=== PATIENT | male | born 1955 | race African-American/Black ===

== ENCOUNTER 2017-10-27 11:01 | Outpatient (CLI) | payer OTHER ==
--- NOTE | 2017-10-27 12:43 | PRG ---
DATE OF SERVICE: 10/27/2017 HISTORY: Mr. Ronald Serrano is a very pleasant 62-year-old gentleman who presents to the Wound Center for evaluation of an ulceration of the left lower leg. The patient has a pneumatic pump at home which he states he has been using for the treatment of right lower extremity lymphedema. The patient states that once the ulceration of his left lower leg developed, he has not utilized his pneumatic pump on the left. The patient states he is receiving assistance with dressing changes for the left lower leg ulceration by Home Health. The patient reports the sudden onset of left lower extremity edema. He admits to being sedentary. PHYSICAL EXAMINATION: VITAL SIGNS: Temperature 98.3, pulse 94, respirations 18, blood pressure 157/ 87. Accu-Chek 129. EXTREMITIES: An ulceration of the left lower leg is present which measures approximately 2.8 x 2.7 cm. Granulation tissue is present within the wound margins. Necrotic and nonviable tissue present within the wound margins was debrided with an excisional full-thickness debridement with the use of a curet. No purulent drainage is associated with the wound. No erythema of the skin surrounding the wound is present. No maceration of the skin of the periwound is noted. A dorsalis pedis pulse is palpable on the left. Significant edema of the left lower leg is present on exam today. ASSESSMENT AND PLAN: 1. Chronic venous hypertension with ulceration. A venous ultrasound of the left lower extremity will be obtained today to look for findings suggestive of a deep venous thrombosis. If findings suggestive of a deep venous thrombosis are not present, the ulceration will be dressed with Silverlon, Webril, and the 3M Coban 2-layer compression system. As stated above, the patient is receiving assistance with dressing changes by Home Health. The patient has been told that he may utilize his pneumatic pump on the left when the ulceration is not dressed with the 3M Coban 2-layer compression system. The patient understands and is in agreement with the preceding treatment plan. 2. Diabetes mellitus. The patient's Accu-Chek in clinic today is 129. The patient has been told that for optimal wound healing, his blood glucoses should remain below 150. 3. Hypertension. 4. Gout. 5. Lymphedema tarda. 6. Degenerative joint disease. 7. Chronic obstructive pulmonary disease. 8. Obstructive sleep apnea. 9. Anemia. 10. Congestive heart failure. MTDD
--- NOTE | 2017-10-27 15:27 | ULT ---
ULTRASOUND WITH DOPPLER DUPLEX VENOUS LOWER EXTREMITY LEFT: HISTORY: A 62-year-old male with left lower extremity edema. TECHNIQUE: Color flow Doppler, spectral waveform analysis of pulsed Doppler, and sidhu-scale imaging with spike dell and augmentation, were used to evaluate the left common femoral, femoral, popliteal, posterior t ibial, and superficial femoral, veins; and the proximal portions of the profunda femoral and greater saphenous, veins. FINDINGS: There is normal compressibility, demonstration of blood flow by color Doppler and pulsed Doppler, and response to augmentation, in all interrogated veins. IMPRESSION: Negative. No deep vein thrombosis in the left lower extremity. jn[] POS: ISSA
[2017-10-27] MEDS ORDERED: Sodium Chloride 0.9% 15 ML NEB ONE (17:18)
[2017-10-27] MEDS ORDERED: Lidocaine 2% Jelly 5 ML TUBE ONE (17:18)
== END 2017-10-27 11:02 | disposition home or self-care (01) ==
LOC: WCC 11:01 → ULT 11:02
PROVIDERS: ATTEND Family Medicine
DX: M79.89 Other specified soft tissue disorders (principal)
CPT/HCPCS: 11042; 36416; 99213; A4218; G0463

== ENCOUNTER 2018-10-14 10:13 | Outpatient (CLI) | payer OTHER ==
--- NOTE | 2018-10-14 11:35 | PRG ---
DATE OF SERVICE: 10/14/2018 HISTORY: Mr. Ronald Serrano is a very pleasant 63-year-old gentleman last seen in the Wound Center approximately 1 year ago, who now presents for evaluation of an ulceration of the left lateral lower leg. The patient states that he was recently discharged from [facility] after admission for treatment of his left lateral lower leg ulceration. The patient states that he received treatment with IV antibiotics. The patient states that after he was last seen in the Wound Center approximately 1 year ago, the wound of his left lateral lower leg healed completely. He states that when he developed swelling of his lower extremities from heart failure, the ulceration of the left lateral lower leg recurred. Prior to the patient's discharge from clinic one year ago, the patient had received a pneumatic pump for treatment of lower extremity lymphedema. PHYSICAL EXAMINATION: VITAL SIGNS: Temperature 97.5, pulse 97, respirations 20, blood pressure 150/90. Accu-Chek 76. EXTREMITIES: An ulceration of the left lateral lower leg is present, which measures approximately 5.5 x 6.0 cm. Granulation tissue is present within the wound margins. Necrotic and nonviable tissue present within the wound margins was debrided with an excisional full-thickness debridement with the use of a curette. No purulent drainage is associated with the wound. No erythema of the skin surrounding the wound is present. No maceration of the skin of the periwound is noted. A dorsalis pedis pulse is palpable on the right and on the left. Significant edema of the right and left feet and lower legs is present on exam today. ASSESSMENT AND PLAN: 1. Chronic venous hypertension with ulceration. Silverlon, Webril and the 3M Coban 2 Layer Compression System will be applied to the left lower leg ulceration today. Webril and the 3 M Coban 2 Layer Compression System will be applied to the right foot and lower leg. Orders will be transmitted to Home Health for the preceding dressing changes on a weekly basis. I will see Mr. Serrano again in one week. The patient understands and is in agreement with the preceding treatment plan. 2. Diabetes mellitus. The patient's Accu-Chek in clinic today is 76. The patient has been reminded that for optimal wound healing his blood glucoses should remain below 150. 3. Hypertension. 4. Gout. 5. Lymphedema tarda. 6. Degenerative joint disease. 7. Chronic obstructive pulmonary disease. 8. Obstructive sleep apnea. 9. Anemia. 10. Congestive heart failure. Job ID: [id number]
== END 2018-10-14 10:14 | disposition home or self-care (01) ==
LOC: WCC 10:13
PROVIDERS: ATTEND Family Medicine
DX: I87.312 Chronic venous hypertension (idiopathic) with ulcer of left lower extremity (principal); E11.622 Type 2 diabetes mellitus with other skin ulcer; L97.929 Non-pressure chronic ulcer of unspecified part of left lower leg with unspecified severity; I10 Essential (primary) hypertension; M10.9 Gout, unspecified; I89.0 Lymphedema, not elsewhere classified; M19.90 Unspecified osteoarthritis, unspecified site; J44.9 Chronic obstructive pulmonary disease, unspecified; G47.33 Obstructive sleep apnea (adult) (pediatric); D64.9 Anemia, unspecified; I50.9 Heart failure, unspecified
CPT/HCPCS: 36416

== ENCOUNTER 2018-11-11 10:24 | Outpatient (CLI) | payer OTHER ==
[~2018-11-11 10:24] MED LIST: Lidocaine 2% PF 100 mg/5 ml Syringe ONE; Sodium Chloride 0.9% 15 ML NEB ONE
--- NOTE | 2018-11-11 12:13 | PRG ---
DATE OF SERVICE: 11/11/2018 HISTORY: Mr. Ronald Serrano is a very pleasant 63-year-old gentleman, who presents to the Wound Center for evaluation of an ulceration of the left lateral lower leg. At the time of the patient's last visit, Mr. Serrano stated that he was recently discharged from [facility] after admission for treatment of his left lateral lower leg ulceration. The patient stated that he received treatment with IV antibiotics. He stated that after he was seen in the Wound Center approximately 1 year ago, the wound of his left lateral lower leg healed completely. He stated that when he developed swelling of his lower extremities from heart failure, the ulceration of the left lateral lower leg recurred. The patient states that he has a pneumatic pump at home for treatment of lower extremity lymphedema. PHYSICAL EXAMINATION: VITAL SIGNS: Temperature 98.4, pulse 112, respirations 16, blood pressure 142/89. Accu-Chek 77. EXTREMITIES: An ulceration of the left lateral lower leg is present which measures approximately 6.3 x 4.5 cm. Nonviable tissue present within the wound margins was debrided with an excisional full-thickness debridement with the use of a curette. No purulent drainage is associated with the wound. No erythema of the skin surrounding the wound is present. No maceration of the skin of the periwound is noted. A dorsalis pedis pulse is palpable on the left. Significant edema of the left foot and lower leg is present on exam today. ASSESSMENT AND PLAN: 1. Chronic venous hypertension with ulceration, Webril and 3M Coban 2 Layer Compression System will be applied to the left foot and lower leg today. Orders will be transmitted to Home Health for Webril and 3M Coban 2 Layer Compression System to the left foot and lower leg on a weekly basis. I will see Mr. Serrano again in 4 weeks. The patient has been instructed to utilize his lymphedema pump on the right in conjunction with the use of a compression garment. 2. Diabetes mellitus. The patient's Accu-Chek in clinic today is 77. The patient has been reminded that for optimal wound healing, his blood glucoses should remain below 150. 3. Hypertension. 4. Gout. 5. Lymphedema tarda. 6. Degenerative joint disease. 7. Chronic obstructive pulmonary disease. 8. Obstructive sleep apnea. 9. Anemia. 10. Congestive heart failure. Job ID: [id number]
== END 2018-11-11 10:25 | disposition home or self-care (01) ==
LOC: WCC 10:24
PROVIDERS: ATTEND Family Medicine
DX: I87.312 Chronic venous hypertension (idiopathic) with ulcer of left lower extremity (principal); L97.929 Non-pressure chronic ulcer of unspecified part of left lower leg with unspecified severity; I11.0 Hypertensive heart disease with heart failure; I50.9 Heart failure, unspecified; M10.9 Gout, unspecified; I89.0 Lymphedema, not elsewhere classified; M19.90 Unspecified osteoarthritis, unspecified site; J44.9 Chronic obstructive pulmonary disease, unspecified; G47.33 Obstructive sleep apnea (adult) (pediatric); D64.9 Anemia, unspecified
CPT/HCPCS: 11042; 11045; 36416; A4218; J2001

== ENCOUNTER 2018-12-23 14:00 | Outpatient (CLI) | payer OTHER ==
[~2018-12-23 14:00] MED LIST changes: -Lidocaine 2% PF 100 mg/5 ml Syringe ONE
--- NOTE | 2018-12-23 16:43 | PRG ---
DATE OF SERVICE: 12/23/2018 HISTORY: Mr. Ronald Serrano is a very pleasant 63-year-old gentleman, who presents to the Wound Center for evaluation of an ulceration of the left lower leg. The patient previously stated that he was recently discharged from [facility] after admission for treatment of his left lower leg ulceration. The patient stated that he received treatment with IV antibiotics. He stated that after he was seen in the Wound Center approximately 1 year ago, the wound of his left lower leg healed completely. He stated that when he developed swelling of his lower extremities from heart failure, the ulceration of the left lower leg recurred. The patient stated that he has a pneumatic pump at home for treatment of lower extremity lymphedema. The patient has been receiving dressing changes of the 3M Coban 2 Layer Compression System on a weekly basis with the assistance of Home Health. PHYSICAL EXAMINATION: VITAL SIGNS: Temperature 98.4, pulse 113, blood pressure 133/91. Accu-Chek 124. EXTREMITIES: An ulceration of the left lower leg is present, which measures approximately 4.3 x 2.8 cm. The dimensions of the wound at the time of the patient's last visit were approximately 6.3 x 4.5 cm. Nonviable tissue present within the wound margins was debrided with an excisional full-thickness debridement. No purulent drainage is associated with the wound. No erythema of the skin surrounding the wound is present. No maceration of the skin of the periwound is noted. A dorsalis pedis pulse is palpable on the left. Lymphedema of the left foot and lower leg is present on exam today. ASSESSMENT AND PLAN: 1. Chronic venous hypertension with ulceration. The 3M Coban 2 Layer Compression System will be applied to the left foot and lower leg today. Orders will be transmitted to Home Health for application of the 3M Coban 2 Layer Compression System to the left foot and lower leg on a weekly basis. I will see Mr. Serrano again in 8 weeks. 2. Diabetes mellitus. The patient's Accu-Chek in clinic today is 124. The patient has been reminded that for optimal wound healing, his blood glucoses should remain below 150. 3. Hypertension. 4. Gout. 5. Lymphedema tarda. The patient has been encouraged to utilize his CPAP mask. I have explained that with appropriate treatment of obstructive sleep apnea, he may have less lymphedema. 6. Degenerative joint disease. 7. Chronic obstructive pulmonary disease. 8. Obstructive sleep apnea. 9. Anemia. 10. Congestive heart failure. The patient states he has a followup appointment with Dr. Concepcion later this month. Job ID: [id number]
== END 2018-12-23 14:01 | disposition home or self-care (01) ==
LOC: WCC 14:00
PROVIDERS: ATTEND Family Medicine
DX: I87.312 Chronic venous hypertension (idiopathic) with ulcer of left lower extremity (principal); L97.929 Non-pressure chronic ulcer of unspecified part of left lower leg with unspecified severity; I11.0 Hypertensive heart disease with heart failure; I50.9 Heart failure, unspecified; M10.9 Gout, unspecified; I89.0 Lymphedema, not elsewhere classified; M19.90 Unspecified osteoarthritis, unspecified site; J44.9 Chronic obstructive pulmonary disease, unspecified; G47.33 Obstructive sleep apnea (adult) (pediatric); D64.9 Anemia, unspecified
CPT/HCPCS: 11042; A4218

== ENCOUNTER 2019-01-21 15:27 | Outpatient (CLI) | payer OTHER ==
--- NOTE | 2019-01-21 17:15 | PRG ---
DATE OF SERVICE: 01/21/2019 HISTORY: Mr. Ronald Serrano is a very pleasant 63-year-old gentleman, who presents to the Wound Center for evaluation of an ulceration of the left lower leg. Today, the patient states that he was recently discharged from [facility] after admission for treatment of his left lower leg ulceration. The patient states that a blister developed over the existing left lower leg ulceration. The patient continues to receive dressing changes with the assistance of Home Health. PHYSICAL EXAMINATION: VITAL SIGNS: Temperature 97.7, pulse 84, respirations 19, and blood pressure 123/78. Accu-Chek 154. EXTREMITIES: An ulceration of the left lower leg is present, which measures approximately 6.5 x 3.0 cm. Granulation tissue is present within the wound margins. No purulent drainage is associated with the wound. No erythema of the skin surrounding the wound is present. No maceration of the skin of the periwound is noted. A dorsalis pedis pulse is palpable on the left. Lymphedema of the left foot and lower leg is present on exam today. ASSESSMENT AND PLAN: 1. Chronic venous hypertension with ulceration. PolyMem Silver followed by the 3M Coban 2 Layer Compression System will be applied to the left lateral lower leg ulceration today. Orders will be transmitted to Home Health for the preceding dressing changes 2 times per week after cleansing and irrigation. I will see Mr. Serrano again in 8 weeks. 2. Diabetes mellitus. The patient's Accu-Chek in clinic today is 154. The patient has been reminded that for optimal wound healing, his blood glucoses should remain below 150. 3. Hypertension. 4. Gout. 5. Lymphedema tarda. The patient has been reminded that with appropriate treatment of obstructive sleep apnea, he may have less lymphedema. 6. Degenerative joint disease. 7. Chronic obstructive pulmonary disease. 8. Obstructive sleep apnea. 9. Anemia. 10. Congestive heart failure. The patient states that he has not yet had a followup appointment with Dr. Concepcion as was discussed at the time of the patient's last visit. Job ID: [id number]
[2019-01-21] MEDS ORDERED: Sodium Chloride 0.9% 15 ML NEB ONE (17:26)
== END 2019-01-21 15:28 | disposition home or self-care (01) ==
LOC: WCC 15:27
PROVIDERS: ATTEND Family Medicine
DX: I87.312 Chronic venous hypertension (idiopathic) with ulcer of left lower extremity (principal); E11.622 Type 2 diabetes mellitus with other skin ulcer; L97.929 Non-pressure chronic ulcer of unspecified part of left lower leg with unspecified severity; I11.0 Hypertensive heart disease with heart failure; I50.9 Heart failure, unspecified; M10.9 Gout, unspecified; G47.33 Obstructive sleep apnea (adult) (pediatric); I89.0 Lymphedema, not elsewhere classified; J44.9 Chronic obstructive pulmonary disease, unspecified; D64.9 Anemia, unspecified
CPT/HCPCS: 36416; 97602; A4218

== ENCOUNTER 2019-02-24 15:29 | Outpatient (CLI) | payer OTHER ==
--- NOTE | 2019-02-24 17:20 | PRG ---
DATE OF SERVICE: 02/24/2019 HISTORY: Mr. Ronald Serrano is a very pleasant 64-year-old gentleman, who presents to the Wound Center for evaluation of bilateral lower extremity edema. Again today, the patient states that he was recently discharged from the hospital. He states that during his hospital stay, he was treated with compression wraps for the edema of both lower extremities. The patient states that he would like to receive treatment with compression wraps with the assistance of Home Health. PHYSICAL EXAMINATION: VITAL SIGNS: Temperature 98.2, pulse 99, respirations 18, blood pressure 130/80. Accu-Chek 119. EXTREMITIES: No wounds of the right or left lower leg are present. No cellulitis of the right or left lower leg is present. No maceration of the skin of the right or left lower leg is present. A dorsalis pedis pulse is palpable on the right and on the left. Edema of the right and left feet and lower legs is present on exam today. ASSESSMENT AND PLAN: 1. Chronic venous hypertension. Webril and the 3M Coban 2 Layer Compression System will be applied to the right and left feet and lower legs today. Orders will be transmitted to Home Health for dressing changes on a weekly basis after cleansing and irrigation. 2. Lymphedema. Arrangements will be made for lymphedema therapy through home health. The patient has already been provided with a pneumatic pump. 3. Diabetes mellitus. The patient's Accu-Chek in clinic today is 119. 4. Hypertension. 5. Gout. 6. Obstructive sleep apnea. 7. Degenerative joint disease. 8. Chronic obstructive pulmonary disease. 9. Anemia. 10. Congestive heart failure. Job ID: [id number]
== END 2019-02-24 15:30 | disposition home or self-care (01) ==
LOC: WCC 15:29
PROVIDERS: ATTEND Family Medicine
DX: I87.309 Chronic venous hypertension (idiopathic) without complications of unspecified lower extremity (principal); I11.0 Hypertensive heart disease with heart failure; I89.0 Lymphedema, not elsewhere classified; E11.9 Type 2 diabetes mellitus without complications; G47.33 Obstructive sleep apnea (adult) (pediatric); M10.9 Gout, unspecified; M19.90 Unspecified osteoarthritis, unspecified site; J44.9 Chronic obstructive pulmonary disease, unspecified; D64.9 Anemia, unspecified; I50.9 Heart failure, unspecified
CPT/HCPCS: 36416

== ENCOUNTER 2019-03-17 15:02 | Outpatient (CLI) | payer OTHER ==
--- NOTE | 2019-03-17 15:57 | PRG ---
DATE OF SERVICE: 03/17/2019 HISTORY: Mr. Ronald Serrano is a very pleasant 64-year-old gentleman, who presents to the Wound Center for evaluation of bilateral lower extremity edema. The patient states that he also has wounds of the right lower leg which developed since his last visit to the Wound Center. The patient has been evaluated by Occupational Therapy for lymphedema therapy. He states that he is still awaiting approval in order to begin treatment, however. PHYSICAL EXAMINATION: VITAL SIGNS: Temperature 97.9, pulse 91, respirations 22, blood pressure 128/85. Accu-Chek 93. EXTREMITIES: Two wounds are present over the right lower leg. No wounds are present over the left lower leg. No purulent drainage is associated with the wounds over the right lower leg. No cellulitis of the right or left lower leg is present. No maceration of the skin of the right or left lower leg is present. A dorsalis pedis pulse is palpable on the right and on the left. Edema of the right and left feet and lower legs is present on today's exam. ASSESSMENT AND PLAN: 1. Chronic venous hypertension with ulceration. Xeroform gauze, Webril, and the 3M Coban 2 Layer Compression System will be applied to the right lower leg ulcerations today. Webril and the 3M Coban 2 Layer Compression System will be applied to the left foot and lower leg. 2. Lymphedema. As stated above, the patient is awaiting approval in order to begin lymphedema therapy by OT. 3. Diabetes mellitus. The patient's Accu-Chek in clinic today is 93. The patient has been told that for optimal wound healing, his blood glucoses should remain below 150. 4. Hypertension. 5. Gout. 6. Obstructive sleep apnea. 7. Degenerative joint disease. 8. Chronic obstructive pulmonary disease. 9. Anemia. 10. Congestive heart failure. Job ID: [id number]
== END 2019-03-17 15:03 | disposition home or self-care (01) ==
LOC: WCC 15:02
PROVIDERS: ATTEND Family Medicine
DX: I87.311 Chronic venous hypertension (idiopathic) with ulcer of right lower extremity (principal); E11.622 Type 2 diabetes mellitus with other skin ulcer; L97.919 Non-pressure chronic ulcer of unspecified part of right lower leg with unspecified severity; I89.0 Lymphedema, not elsewhere classified; I11.0 Hypertensive heart disease with heart failure; I50.9 Heart failure, unspecified; M10.9 Gout, unspecified; G47.33 Obstructive sleep apnea (adult) (pediatric); M19.90 Unspecified osteoarthritis, unspecified site; J44.9 Chronic obstructive pulmonary disease, unspecified; D64.9 Anemia, unspecified
CPT/HCPCS: 36416; 97602; A4218

== ENCOUNTER 2019-03-25 11:17 | Outpatient (CLI) | payer OTHER ==
--- NOTE | 2019-03-25 12:27 | PRG ---
DATE OF SERVICE: 03/25/2019 HISTORY: Mr. Ronald Serrano is a very pleasant 64-year-old gentleman, who presents to the Wound Center for evaluation of bilateral lower extremity edema. The patient also has wounds of the right lower leg in conjunction with bilateral lower extremity edema. Again, the patient states that he has been evaluated by occupational therapy for lymphedema therapy, but is still awaiting approval in order to begin treatment consisting of serial visits. PHYSICAL EXAMINATION: vital SIGNS: Temperature 98.0, pulse 102, respirations 24, and blood pressure 132/73. Accu-Chek 150. EXTREMITIES: Multiple wounds are present over the right lower leg. No wounds are present over the left lower leg. The wounds over the right lower leg have improved in their appearance since the patient's last visit. No purulent drainage is associated with the right lower leg wounds. No cellulitis of the right or left lower leg is present. No maceration of the skin of the right or left lower leg is present. Edema of the left foot and lower leg is present on exam today. No significant edema of the right foot or lower leg is appreciated on today's exam. ASSESSMENT AND PLAN: 1. Chronic venous hypertension with ulcerations. Xeroform gauze, Webril, and the 3M Coban 2-Layer Compression System will be applied to the right lower leg ulcerations today. Webril and the 3M Coban 2-Layer Compression System will be applied to the left foot and lower leg. 2. Lymphedema. As stated above, the patient is awaiting approval in order to begin lymphedema therapy by Occupational Therapy. Arrangements will be made for the home delivery of wraparound compression in the meantime. 3. Diabetes mellitus. The patient's Accu-Chek in clinic today is 150. The patient has been reminded that for optimal wound healing, his blood glucoses should remain below 150. 4. Hypertension. 5. Gout. 6. Obstructive sleep apnea. 7. Degenerative joint disease. 8. Chronic obstructive pulmonary disease. 9. Anemia. 10. Congestive heart failure. Job ID: [id number]
== END 2019-03-25 11:18 | disposition home or self-care (01) ==
LOC: WCC 11:17
PROVIDERS: ATTEND Family Medicine
DX: I87.311 Chronic venous hypertension (idiopathic) with ulcer of right lower extremity (principal); E11.622 Type 2 diabetes mellitus with other skin ulcer; I89.0 Lymphedema, not elsewhere classified; L97.919 Non-pressure chronic ulcer of unspecified part of right lower leg with unspecified severity; M10.9 Gout, unspecified; I11.0 Hypertensive heart disease with heart failure; I50.9 Heart failure, unspecified; D64.9 Anemia, unspecified; G47.33 Obstructive sleep apnea (adult) (pediatric); M19.90 Unspecified osteoarthritis, unspecified site; J44.9 Chronic obstructive pulmonary disease, unspecified
CPT/HCPCS: 29581; 36416

== ENCOUNTER 2019-03-31 13:47 | Outpatient (CLI) | payer OTHER ==
--- NOTE | 2019-03-31 17:06 | PRG ---
DATE OF SERVICE: 03/31/2019 SUBJECTIVE: Mr. Ronald Serrano is a very pleasant 64-year-old gentleman who presents to the Wound Center for evaluation of bilateral lower extremity edema. The patient also has wounds at the right and left lower legs in conjunction with bilateral lower extremity edema. Today, the patient states that he has been evaluated by Occupational Therapy for lymphedema therapy, but will only be able to begin lymphedema therapy once all of his ulcerations have healed completely. PHYSICAL EXAMINATION: VITAL SIGNS: Temperature 97.9, pulse 91, respirations 19, and blood pressure 150/90. Accu-Chek 114. EXTREMITIES: Multiple small ulcerations are present over the right and left lower legs. No purulent drainage is associated with any of the wounds. No cellulitis of the right or left lower leg is present. No maceration of the skin of the right or left lower leg is present. Edema of the right and left feet and lower legs is present on today's exam. ASSESSMENT AND PLAN: 1. Chronic venous hypertension with ulcerations. Xeroform gauze will be applied to the right and left lower leg ulcerations in conjunction with the Plurchase Coban 2 Layer Compression System. Webril and ABDs will be utilized as needed at the time of dressing changes. 2. Lymphedema. Arrangements were previously made for the home delivery of wrap around compression. I have asked the patient to bring his wraparound compression to his next clinic visit. The patient states that he recently received his wraparound compression in the mail. The patient will return to the wound center in 1 week for a dressing change. I will see Mr. Serrano again in 2 weeks. The patient will be instructed in regard to proper application of the wraparound compression at the time of his next clinic visit. 3. Diabetes mellitus. The patient's Accu-Chek in clinic today is 114. The patient has been reminded that for optimal wound healing his blood glucoses should remain below 150. 4. Hypertension. 5. Gout. 6. Obstructive sleep apnea. 7. Degenerative joint disease. 8. Chronic obstructive pulmonary disease. 9. Anemia. 10. Congestive heart failure. Job ID: [id number]
== END 2019-03-31 13:48 | disposition home or self-care (01) ==
LOC: WCC 13:47
PROVIDERS: ATTEND Family Medicine
DX: I87.313 Chronic venous hypertension (idiopathic) with ulcer of bilateral lower extremity (principal); E11.622 Type 2 diabetes mellitus with other skin ulcer; L97.929 Non-pressure chronic ulcer of unspecified part of left lower leg with unspecified severity; L97.919 Non-pressure chronic ulcer of unspecified part of right lower leg with unspecified severity; M10.9 Gout, unspecified; G47.33 Obstructive sleep apnea (adult) (pediatric); M19.90 Unspecified osteoarthritis, unspecified site; J44.9 Chronic obstructive pulmonary disease, unspecified; D64.9 Anemia, unspecified; I11.0 Hypertensive heart disease with heart failure; I50.9 Heart failure, unspecified
CPT/HCPCS: 29581; 36416

== ENCOUNTER 2019-04-07 11:31 | Outpatient (CLI) | payer OTHER | END 2019-04-07 11:32 | disposition home or self-care (01) | LOC: WCC 11:31 | PROVIDERS: ATTEND Family Medicine | DX: I87.311 Chronic venous hypertension (idiopathic) with ulcer of right lower extremity (principal); L97.919 Non-pressure chronic ulcer of unspecified part of right lower leg with unspecified severity | CPT/HCPCS: 36416 ==

== ENCOUNTER 2019-04-14 15:55 | Outpatient (CLI) | payer OTHER ==
--- NOTE | 2019-04-14 16:23 | PRG ---
DATE OF SERVICE: 04/14/2019 HISTORY: Mr. Ronald Serrano is a very pleasant 64-year-old gentleman, who presents to the Wound Center for evaluation of bilateral lower extremity edema. The patient also has wounds of the right and left lower legs in conjunction with bilateral lower extremity edema. The patient apparently has been evaluated by Occupational Therapy for lymphedema therapy. The patient previously stated that he would be able to begin lymphedema therapy only when all of his ulcerations have completely healed. PHYSICAL EXAMINATION: VITAL SIGNS: Temperature 97.7, pulse 80, respirations 19, blood pressure 181/96. Accu-Chek 92. EXTREMITIES: All ulcerations over the right and left lower legs have healed completely. Edema of the right and left feet and lower legs is again present on exam today. ASSESSMENT AND PLAN: 1. Chronic venous hypertension with ulcerations. As stated above, all ulcerations have completely healed. FarrowWraps will be applied to the right and left lower legs today. 2. Lymphedema. The patient is to use his pneumatic pump at night and utilize his FarrowWraps during the day. I will see Mr. Serrano again in 4 weeks. The patient will be referred again to Occupational Therapy for instruction in the application of short stretch dressings. 3. Diabetes mellitus. The patient's Accu-Chek in clinic today is 92. 4. Hypertension. 5. Gout. 6. Obstructive sleep apnea. 7. Degenerative joint disease. 8. Chronic obstructive pulmonary disease. 9. Anemia. 10. Congestive heart failure. Job ID: [id number]
== END 2019-04-14 15:56 | disposition home or self-care (01) ==
LOC: WCC 15:55
PROVIDERS: ATTEND Family Medicine
DX: I87.303 Chronic venous hypertension (idiopathic) without complications of bilateral lower extremity (principal); I89.0 Lymphedema, not elsewhere classified; E11.9 Type 2 diabetes mellitus without complications; M10.9 Gout, unspecified; G47.33 Obstructive sleep apnea (adult) (pediatric); M19.90 Unspecified osteoarthritis, unspecified site; J44.9 Chronic obstructive pulmonary disease, unspecified; D64.9 Anemia, unspecified; I11.0 Hypertensive heart disease with heart failure; I50.9 Heart failure, unspecified
CPT/HCPCS: 36416; 99213; G0463

== ENCOUNTER 2019-05-17 15:32 | Outpatient (CLI) | payer OTHER ==
--- NOTE | 2019-05-17 17:29 | PRG ---
DATE OF SERVICE: HISTORY: Mr. Ronald Serrano is a very pleasant 64-year-old gentleman, who [facility] of bilateral lower extremity edema. The patient has also been seen for wounds of the right and left lower legs in conjunction with bilateral lower extremity edema. The patient has been evaluated by occupational therapy for lymphedema therapy. The patient previously stated that he would be able to begin lymphedema therapy only when all of his ulcerations had completely healed. PHYSICAL EXAMINATION: VITAL SIGNS: Temperature 98.1, pulse 91, respirations 16, and blood pressure 143/80. Accu-Chek 114. EXTREMITIES: All ulcerations over the right and left lower legs have healed completely and remain healed. Less edema of the right and left feet and lower legs is present on exam today than at the time of the patient's last visit. ASSESSMENT AND PLAN: 1. Chronic venous hypertension with ulcerations. As stated above, all ulcerations have healed completely and remain healed. The patient is utilizing FarrowWraps as previously prescribed. 2. Lymphedema. The patient has been reminded to utilize his pneumatic pump at night and his FarrowWraps during the day. As stated above, the patient should now be able to begin lymphedema therapy now that all of his ulcerations have healed completely and remain healed. The patient was referred to Occupational Therapy for lymphedema therapy to include instruction in the application of short stretch dressings. 3. Diabetes mellitus. The patient's Accu-Chek in clinic today is 114. 4. Hypertension. 5. Gout. 6. Obstructive sleep apnea. 7. Degenerative joint disease. 8. Chronic obstructive pulmonary disease. 9. Anemia. 10. Congestive heart failure. Job ID: [id number]
== END 2019-05-17 15:33 | disposition home or self-care (01) ==
LOC: WCC 15:32
PROVIDERS: ATTEND Family Medicine
DX: I87.303 Chronic venous hypertension (idiopathic) without complications of bilateral lower extremity (principal); I11.0 Hypertensive heart disease with heart failure; I50.9 Heart failure, unspecified; I89.0 Lymphedema, not elsewhere classified; M10.9 Gout, unspecified; G47.33 Obstructive sleep apnea (adult) (pediatric); M19.90 Unspecified osteoarthritis, unspecified site; J44.9 Chronic obstructive pulmonary disease, unspecified; D64.9 Anemia, unspecified; E11.9 Type 2 diabetes mellitus without complications
CPT/HCPCS: 97602

== ENCOUNTER 2021-11-29 10:15 | Inpatient (IN) | payer OTHER ==
[~2021-11-29 10:15] MED LIST changes: +Heparin 1,000 UNITS/ML VIAL ONE; -Sodium Chloride 0.9% 15 ML NEB ONE
[2021-11-29] MEDS ORDERED: Furosemide 40 MG/4 ML VIAL ONE (10:25)
[2021-11-29 10:33] LABS: Actual Bicarbonate (HCO3a) 23.5 mEq/L (22-28); Analyzer IN Cardio ER; Calcium, Ionized (arterial) 1.16 mmol/L (1.12-1.30); Carboxyhemoglobin (COHb) 2.8 gm% (0.0-3.0); Hemoglobin (Hb) 11.8 g/dL (14.0-18.0); O2 Tension (PaO2), arterial 251.2 mmHg (> 80.0)
[2021-11-29 10:34] LABS: Puncture Site LRA; pH, Arterial 7.11 (7.35-7.45)
[2021-11-29 10:44] LABS: #Eosinphils 0.4 thou/uL (0.0-0.7); #Lymphocytes 4.5 thou/uL (1.20-3.40); #Monocytes 0.9 thou/uL (0.11-0.59); #Neutrophils 4.8 thou/uL (1.40-6.50); %Basophils 0.4 % (0.0-1.0); %Eosinophils 3.7 % (0.0-10.0); %Lymphocytes 42.2 % (21.0-51.0); %Monocytes 8.7 % (0.0-10.0); %Neutrophils 44.9 % (42.0-75.0); Hemoglobin 11.8 g/dL (14.0-18.0); Mean Corpuscular HGB CONC 32.6 g/dL (32.0-36.0); Mean Corpuscular Hemoglobin 31.2 pg (27.0-31.0); Mean Corpuscular Volume 95.6 fL (78.0-98.0); Mean Platelet Volume 10.3 fL (7.4-10.4); Platelet Count 272 thou/uL (130-400); RBC Distribution Width 15.3 % (11.5-14.5); Red Blood Cell (RBC) Count 3.78 mill/uL (4.70-6.10); White Blood Cell (WBC) Count 10.7 thou/uL (4.8-10.8)
[2021-11-29] MEDS ORDERED: cefTRIAXone\\ROCEPHIN 2 GM VIAL ONE (10:49)
[2021-11-29 10:59] LABS: ALT (SGPT) 13 U/L (8-55); AST (SGOT) 17 U/L (5-34); Albumin 3.4 g/dL (3.4-4.8); Alkaline Phosphatase 90 U/L (40-110); Anion Gap 15 mmol/L (10-20); BUN (Urea Nitrogen) 29 mg/dL (8.4-25.7); Bilirubin, Total 0.2 mg/dL (0.2-1.2); Calc. Creatinine Clearance 0 mL/min (70-130); Calcium 8.5 mg/dL (7.8-10.44); Carbon Dioxide 21 mmol/L (23-31); Chloride 108 mmol/L (98-107); Glucose 218 mg/dL (80-115); Potassium 4.2 mmol/L (3.5-5.1); Protein, Total 8.4 g/dL (5.8-8.1); Sodium 140 mmol/L (136-145)
[2021-11-29] MEDS ORDERED: Iopamidol-370 76% 500 ML 1 ML ONE (11:07)
[2021-11-29] MEDS ORDERED: Azithromycin 500 MG VIAL ONE (11:42)
[2021-11-29] MEDS ORDERED: Electrolyte Replacement Protocol 1 EACH IVPB ONE (12:52)
[2021-11-29 12:53] LABS: Analyzer IN Cardio ER; Base Excess (BEa) -2.8 mEq/L (-2.0 to +3.0); CO2 Tension 51.4 mmHg (35.0-45.0); Calcium, Ionized (arterial) 1.14 mmol/L (1.12-1.30); Carboxyhemoglobin (COHb) 2.1 gm% (0.0-3.0); Hemoglobin (Hb) 10.7 g/dL (14.0-18.0); O2 Tension (PaO2), arterial 75.7 mmHg (> 80.0); Potassium - ABG Lab 4.42 mmol/L (3.70-5.30); pH, Arterial 7.29 (7.35-7.45)
[2021-11-29 12:54] LABS: Puncture Site RRA
[2021-11-29] MEDS ORDERED: Magnesium 2 GM/50 ML BAG (IN WATER) ONE (13:00)
[2021-11-29] MEDS ORDERED: Electrolyte Replacement Protocol FS PRN (13:00)
[2021-11-29] MEDS ORDERED: methylPREDNISolone Sod Succ/PF 125 MG/2 ML VIAL ONE (13:01)
[2021-11-29] MEDS ORDERED: Nitroglycerin 2% Ointment 1 INCH/1 GM Packet ONE (13:01)
[2021-11-29 13:54] LABS: SARS-CoV-2 NAA Rapid Test Not Detected (NotDetected)
[2021-11-29] MEDS ORDERED: Ondansetron ODT 4 MG TAB SL PRN (14:45)
[2021-11-29] MEDS ORDERED: Ondansetron PF 4 MG/2 ML Vial IVP PRN (14:45)
[2021-11-29] MEDS ORDERED: Insulin Regular 300 UNITS/3 ML VIAL SC PRN (15:34)
[2021-11-29] MEDS ORDERED: Dextrose 5% in Water 1,000 ML IV PRN (15:45)
[2021-11-29] MEDS ORDERED: Dextrose 50% Abboject 50 ML SYRINGE IVP PRN (15:45)
[2021-11-29 16:09] VITALS: BMI 40.1
[2021-11-29] MEDS: methylPREDNISolone Sod Succ 40 MG VIAL IVP SCH (18:10)
[2021-11-29] MEDS: Carvedilol 6.25 MG TAB PO SCH (20:00)
[2021-11-29] MEDS: Enoxaparin Sodium 40 MG/0.4 ML SYRINGE SC SCH (20:00)
[2021-11-29] MEDS: Famotidine 20 MG TAB PO SCH (20:01)
[2021-11-29] MEDS: Lantus 1000 UNITS/10 ML VIAL SC SCH (21:57)
[2021-11-30] MEDS: methylPREDNISolone Sod Succ 40 MG VIAL IVP SCH ×4 (00:12→22:34)
[2021-11-30 04:35] LABS: Hemoglobin 9.5 g/dL (14.0-18.0); Mean Corpuscular HGB CONC 31.4 g/dL (32.0-36.0); Mean Corpuscular Hemoglobin 30.2 pg (27.0-31.0); Mean Corpuscular Volume 96.1 fL (78.0-98.0); Platelet Count 214 thou/uL (130-400); RBC Distribution Width 14.1 % (11.5-14.5); Red Blood Cell (RBC) Count 3.16 mill/uL (4.70-6.10)
[2021-11-30 04:47] LABS: Band 2 % (5-11); Lymphocytes 10 % (21-51); MDiff Complete? YES; Monocytes 3 % (0-10); Neutrophil 84 % (42-75); Reactive Lymphocytes 1 % (0-10)
[2021-11-30 04:56] LABS: ALT (SGPT) 11 U/L (8-55); AST (SGOT) 10 U/L (5-34); Albumin 2.9 g/dL (3.4-4.8); Alkaline Phosphatase 70 U/L (40-110); Anion Gap 11 mmol/L (10-20); BUN (Urea Nitrogen) 34 mg/dL (8.4-25.7); Bilirubin, Total 0.2 mg/dL (0.2-1.2); Calc. Creatinine Clearance 60 mL/min (70-130); Calcium 8.5 mg/dL (7.8-10.44); Carbon Dioxide 25 mmol/L (23-31); Chloride 107 mmol/L (98-107); Globulin 3.6 g/dL (2.4-3.5); Glucose 125 mg/dL (80-115); Potassium 5.2 mmol/L (3.5-5.1); Protein, Total 6.5 g/dL (5.8-8.1); Sodium 138 mmol/L (136-145)
[2021-11-30 08:05] LABS: Amphetamine Not Detected (NotDetected); Barbiturates Screen Not Detected (NotDetected); Benzodiazepine Screen Not Detected (NotDetected); Cocaine Metabolite Screen Not Detected (NotDetected); Methadone Not Detected (NotDetected); Methamphetamine Not Detected (NotDetected); Opiate Screen Not Detected (NotDetected); Oxycodone Screen Not Detected (NotDetected); Phencyclidine (PCP) Not Detected (NotDetected); THC/Cannabinoid Screen Not Detected (NotDetected); Tricyclic Screen Not Detected (NotDetected)
[2021-11-30] MEDS: Carvedilol 6.25 MG TAB PO SCH ×2 (08:49→17:54)
[2021-11-30] MEDS: NIFEdipine XL 60 MG TAB PO SCH (08:49)
[2021-11-30] MEDS: cefTRIAXone\\ROCEPHIN 2 GM in Sodium Chloride 0.9% 100 ML IVPB SCH (08:49)
[2021-11-30] MEDS ORDERED: Furosemide 40 MG/4 ML VIAL SLOW IVP SCH (09:00)
[2021-11-30] MEDS: Azithromycin 500 MG in Sodium Chloride 0.9% 250 ML 250 ML IVPB SCH (13:03)
[2021-11-30 15:44] LABS: Anion Gap 15 mmol/L (10-20); BUN (Urea Nitrogen) 41 mg/dL (8.4-25.7); Calc. Creatinine Clearance 57 mL/min (70-130); Carbon Dioxide 22 mmol/L (23-31); Chloride 104 mmol/L (98-107); Glucose 131 mg/dL (80-115); Potassium 4.9 mmol/L (3.5-5.1); Sodium 136 mmol/L (136-145)
[2021-11-30] MEDS: Famotidine 20 MG TAB PO SCH (22:33)
[2021-11-30] MEDS: Lantus 1000 UNITS/10 ML VIAL SC SCH (22:34)
[2021-11-30] MEDS: Enoxaparin Sodium 40 MG/0.4 ML SYRINGE SC SCH (22:34)
[2021-12-01 04:57] LABS: ALT (SGPT) 9 U/L (8-55); AST (SGOT) 9 U/L (5-34); Albumin 3.1 g/dL (3.4-4.8); Alkaline Phosphatase 60 U/L (40-110); Anion Gap 12 mmol/L (10-20); BUN (Urea Nitrogen) 50 mg/dL (8.4-25.7); Bilirubin, Total 0.2 mg/dL (0.2-1.2); Calc. Creatinine Clearance 51 mL/min (70-130); Calcium 8.2 mg/dL (7.8-10.44); Carbon Dioxide 25 mmol/L (23-31); Chloride 105 mmol/L (98-107); Globulin 3.5 g/dL (2.4-3.5); Glucose 123 mg/dL (80-115); Potassium 4.9 mmol/L (3.5-5.1); Protein, Total 6.6 g/dL (5.8-8.1); Sodium 137 mmol/L (136-145)
[2021-12-01 06:16] LABS: Band 4 % (5-11); Hemoglobin 8.5 g/dL (14.0-18.0); Lymphocytes 12 % (21-51); MDiff Complete? YES; Mean Corpuscular Hemoglobin 29.9 pg (27.0-31.0); Mean Corpuscular Volume 96.2 fL (78.0-98.0); Mean Platelet Volume 8.7 fL (7.4-10.4); Monocytes 4 % (0-10); Neutrophil 80 % (42-75); Platelet Count 173 thou/uL (130-400); Red Blood Cell (RBC) Count 2.86 mill/uL (4.70-6.10); White Blood Cell (WBC) Count 9.2 thou/uL (4.8-10.8)
[2021-12-01] MEDS: Carvedilol 6.25 MG TAB PO SCH ×2 (08:54→17:04)
[2021-12-01] MEDS: cefTRIAXone\\ROCEPHIN 2 GM in Sodium Chloride 0.9% 100 ML IVPB SCH (08:54)
[2021-12-01] MEDS: NIFEdipine XL 60 MG TAB PO SCH (08:54)
[2021-12-01] MEDS: methylPREDNISolone Sod Succ 40 MG VIAL IVP SCH (08:55)
[2021-12-01] MEDS: Azithromycin 500 MG in Sodium Chloride 0.9% 250 ML 250 ML IVPB SCH (11:23)
[2021-12-01] MEDS ORDERED: predniSONE 20 MG TAB PO SCH (12:30)
[2021-12-01] MEDS ORDERED: Sodium Chloride 0.9% 1,000 ML IV SCH (12:30)
[2021-12-01] MEDS: Famotidine 20 MG TAB PO SCH (21:55)
[2021-12-01] MEDS: Enoxaparin Sodium 40 MG/0.4 ML SYRINGE SC SCH (21:55)
[2021-12-01] MEDS: Lantus 1000 UNITS/10 ML VIAL SC SCH (21:56)
[2021-12-02 04:36] LABS: Hemoglobin 8.9 g/dL (14.0-18.0); Mean Corpuscular HGB CONC 30.5 g/dL (32.0-36.0); Mean Corpuscular Hemoglobin 29.8 pg (27.0-31.0); Mean Corpuscular Volume 97.6 fL (78.0-98.0); Mean Platelet Volume 8.6 fL (7.4-10.4); Platelet Count 169 thou/uL (130-400); RBC Distribution Width 13.9 % (11.5-14.5)
[2021-12-02 05:09] LABS: Band 1 % (5-11); Lymphocytes 19 % (21-51); MDiff Complete? YES; Monocytes 10 % (0-10); Neutrophil 70 % (42-75)
[2021-12-02 05:13] LABS: ALT (SGPT) 14 U/L (8-55); AST (SGOT) 13 U/L (5-34); Albumin 3.1 g/dL (3.4-4.8); Alkaline Phosphatase 55 U/L (40-110); Anion Gap 11 mmol/L (10-20); BUN (Urea Nitrogen) 59 mg/dL (8.4-25.7); Bilirubin, Total Less than 0.2 mg/dL (0.2-1.2); Calc. Creatinine Clearance 46 mL/min (70-130); Calcium 7.8 mg/dL (7.8-10.44); Carbon Dioxide 25 mmol/L (23-31); Chloride 105 mmol/L (98-107); Globulin 3.5 g/dL (2.4-3.5); Glucose 112 mg/dL (80-115); Potassium 5.1 mmol/L (3.5-5.1); Protein, Total 6.6 g/dL (5.8-8.1); Sodium 136 mmol/L (136-145)
[2021-12-02] MEDS ORDERED: Magnesium 2 GM/50 ML 2 GM in Premix Bag 1 BAG IVPB SCH (06:00)
[2021-12-02] MEDS: NIFEdipine XL 60 MG TAB PO SCH (08:06)
[2021-12-02] MEDS: Carvedilol 6.25 MG TAB PO SCH (08:07)
[2021-12-02] MEDS: predniSONE 20 MG TAB PO SCH (08:07)
[2021-12-02] MEDS: cefTRIAXone\\ROCEPHIN 2 GM in Sodium Chloride 0.9% 100 ML IVPB SCH (08:08)
[2021-12-02] MEDS: Azithromycin 500 MG in Sodium Chloride 0.9% 250 ML 250 ML IVPB SCH (11:46)
[2021-12-02] MEDS ORDERED: Sodium Chloride 0.9% 500 ML IV SCH (12:15)
[2021-12-02] MEDS: Carvedilol 3.125 MG TAB PO SCH (16:40)
[2021-12-02] MEDS: Famotidine 20 MG TAB PO SCH (20:00)
[2021-12-02] MEDS: Enoxaparin Sodium 40 MG/0.4 ML SYRINGE SC SCH (20:45)
[2021-12-02] MEDS: Lantus 1000 UNITS/10 ML VIAL SC SCH (21:11)
[2021-12-03 05:18] LABS: ALT (SGPT) 22 U/L (8-55); AST (SGOT) 18 U/L (5-34); Albumin 3.1 g/dL (3.4-4.8); Alkaline Phosphatase 59 U/L (40-110); Anion Gap 13 mmol/L (10-20); BUN (Urea Nitrogen) 61 mg/dL (8.4-25.7); Bilirubin, Total 0.2 mg/dL (0.2-1.2); Calc. Creatinine Clearance 52 mL/min (70-130); Calcium 7.9 mg/dL (7.8-10.44); Carbon Dioxide 23 mmol/L (23-31); Chloride 107 mmol/L (98-107); Globulin 3.5 g/dL (2.4-3.5); Glucose 75 mg/dL (80-115); Potassium 4.8 mmol/L (3.5-5.1); Protein, Total 6.6 g/dL (5.8-8.1); Sodium 138 mmol/L (136-145)
[2021-12-03 06:14] LABS: Eosinophils 1 % (0-10); Hemoglobin 9.8 g/dL (14.0-18.0); Lymphocytes 30 % (21-51); MDiff Complete? YES; Mean Corpuscular HGB CONC 31.2 g/dL (32.0-36.0); Mean Corpuscular Hemoglobin 30.1 pg (27.0-31.0); Mean Corpuscular Volume 96.5 fL (78.0-98.0); Monocytes 7 % (0-10); Neutrophil 62 % (42-75); Platelet Count 185 thou/uL (130-400); RBC Distribution Width 13.9 % (11.5-14.5); Red Blood Cell (RBC) Count 3.24 mill/uL (4.70-6.10); White Blood Cell (WBC) Count 14.2 thou/uL (4.8-10.8)
[2021-12-03] MEDS ORDERED: Sodium Chloride 0.45% 1,000 ML IV SCH (06:45)
[2021-12-03] MEDS: predniSONE 20 MG TAB PO SCH (08:52)
[2021-12-03] MEDS: Carvedilol 3.125 MG TAB PO SCH ×2 (08:53→16:43)
[2021-12-03] MEDS: cefTRIAXone\\ROCEPHIN 2 GM in Sodium Chloride 0.9% 100 ML IVPB SCH (08:53)
[2021-12-03] MEDS: Enoxaparin Sodium 40 MG/0.4 ML SYRINGE SC SCH (20:48)
[2021-12-03] MEDS: Famotidine 20 MG TAB PO SCH (20:50)
[2021-12-03] MEDS: Lantus 1000 UNITS/10 ML VIAL SC SCH (20:53)
[2021-12-03 23:37] LABS: SARS-CoV-2 PCR by NAA Not Detected (NotDetected)
[2021-12-04 05:15] LABS: Hemoglobin 10.5 g/dL (14.0-18.0); Mean Corpuscular HGB CONC 31.1 g/dL (32.0-36.0); Mean Corpuscular Hemoglobin 29.6 pg (27.0-31.0); Mean Corpuscular Volume 95.3 fL (78.0-98.0); Platelet Count 195 thou/uL (130-400); RBC Distribution Width 13.9 % (11.5-14.5); Red Blood Cell (RBC) Count 3.53 mill/uL (4.70-6.10)
[2021-12-04 05:16] LABS: ALT (SGPT) 22 U/L (8-55); AST (SGOT) 17 U/L (5-34); Albumin 3.2 g/dL (3.4-4.8); Alkaline Phosphatase 68 U/L (40-110); Anion Gap 12 mmol/L (10-20); BUN (Urea Nitrogen) 51 mg/dL (8.4-25.7); Band 1 % (5-11); Bilirubin, Total 0.3 mg/dL (0.2-1.2); Calc. Creatinine Clearance 64 mL/min (70-130); Calcium 8.5 mg/dL (7.8-10.44); Carbon Dioxide 25 mmol/L (23-31); Chloride 108 mmol/L (98-107); Globulin 3.9 g/dL (2.4-3.5); Glucose 74 mg/dL (80-115); Lymphocytes 30 % (21-51); MDiff Complete? YES; Monocytes 9 % (0-10); Neutrophil 60 % (42-75); Potassium 4.8 mmol/L (3.5-5.1); Protein, Total 7.1 g/dL (5.8-8.1); Sodium 140 mmol/L (136-145)
[2021-12-04] MEDS: predniSONE 20 MG TAB PO SCH (08:54)
[2021-12-04] MEDS: Carvedilol 3.125 MG TAB PO SCH (08:54)
[2021-12-04] MEDS: cefTRIAXone\\ROCEPHIN 2 GM in Sodium Chloride 0.9% 100 ML IVPB SCH (08:55)
[2021-12-04 13:00] LABS: SARS-CoV-2 IgG Spike Ab Interp Reactive (NonReactive); SARS-CoV-2 IgG Spike Conc/Indx 32894.2 AU/mL (0.00-50.0)
[2021-12-04] MEDS ORDERED: Carvedilol 3.125 MG TAB PO SCH (15:11)
[2021-12-04] MEDS: Carvedilol 6.25 MG TAB PO SCH (17:06)
[2021-12-04] MEDS: Famotidine 20 MG TAB PO SCH (20:17)
[2021-12-04] MEDS: Enoxaparin Sodium 40 MG/0.4 ML SYRINGE SC SCH (20:17)
[2021-12-04] MEDS: Lantus 1000 UNITS/10 ML VIAL SC SCH (20:19)
[2021-12-05 05:30] LABS: ALT (SGPT) 17 U/L (8-55); AST (SGOT) 11 U/L (5-34); Albumin 3.1 g/dL (3.4-4.8); Alkaline Phosphatase 69 U/L (40-110); Anion Gap 13 mmol/L (10-20); BUN (Urea Nitrogen) 44 mg/dL (8.4-25.7); Bilirubin, Total 0.2 mg/dL (0.2-1.2); Calc. Creatinine Clearance 68 mL/min (70-130); Calcium 8.4 mg/dL (7.8-10.44); Carbon Dioxide 21 mmol/L (23-31); Chloride 109 mmol/L (98-107); Globulin 3.7 g/dL (2.4-3.5); Glucose 107 mg/dL (80-115); Potassium 4.7 mmol/L (3.5-5.1); Protein, Total 6.8 g/dL (5.8-8.1); Sodium 138 mmol/L (136-145)
[2021-12-05 05:53] LABS: Band 3 % (5-11); Eosinophils 3 % (0-10); Hemoglobin 10.2 g/dL (14.0-18.0); Lymphocytes 31 % (21-51); MDiff Complete? YES; Mean Corpuscular HGB CONC 30.7 g/dL (32.0-36.0); Mean Corpuscular Hemoglobin 29.6 pg (27.0-31.0); Mean Corpuscular Volume 96.4 fL (78.0-98.0); Mean Platelet Volume 8.8 fL (7.4-10.4); Monocytes 9 % (0-10); Neutrophil 54 % (42-75); Platelet Count 180 thou/uL (130-400); Red Blood Cell (RBC) Count 3.45 mill/uL (4.70-6.10); White Blood Cell (WBC) Count 9.5 thou/uL (4.8-10.8)
[2021-12-05] MEDS: predniSONE 20 MG TAB PO SCH (08:52)
[2021-12-05] MEDS: cefTRIAXone\\ROCEPHIN 2 GM in Sodium Chloride 0.9% 100 ML IVPB SCH (08:52)
[2021-12-05] MEDS: Carvedilol 6.25 MG TAB PO SCH ×2 (08:53→17:05)
[2021-12-05] MEDS: Famotidine 20 MG TAB PO SCH (20:02)
[2021-12-05] MEDS: Lantus 1000 UNITS/10 ML VIAL SC SCH (20:02)
[2021-12-05] MEDS: Enoxaparin Sodium 40 MG/0.4 ML SYRINGE SC SCH (20:02)
[2021-12-06 08:24] VITALS: TEMP 98.7
[2021-12-06] MEDS ORDERED: NIFEdipine XL 60 MG TAB PO SCH (09:00)
[2021-12-06] MEDS: cefTRIAXone\\ROCEPHIN 2 GM in Sodium Chloride 0.9% 100 ML IVPB SCH (09:39)
[2021-12-06] MEDS: Carvedilol 6.25 MG TAB PO SCH (09:40)
[2021-12-06] MEDS: predniSONE 20 MG TAB PO SCH (09:41)
[2021-12-06 09:47] VITALS: BP 157/80
== END 2021-12-06 12:44 | disposition home or self-care (01) | DRG 193 ==
LOC: ERS 10:15 → CCU 12:57 → 2NO 11-30 17:38
PROVIDERS: ADMIT Internal Medicine; ATTEND Hospitalist
PROC: 5A09357 Assistance with Respiratory Ventilation, Less than 24 Consecutive Hours, Continuous Positive Airway Pressure (ICD-10-PCS; 2021-11-29)
PROC: 02HV33Z Insertion of Infusion Device into Superior Vena Cava, Percutaneous Approach (ICD-10-PCS; principal; 2021-12-05)
PROC: B548ZZA Ultrasonography of Superior Vena Cava, Guidance (ICD-10-PCS; 2021-12-05)
PROC: B5181ZA Fluoroscopy of Superior Vena Cava using Low Osmolar Contrast, Guidance (ICD-10-PCS; 2021-12-05)
DX: J18.9 Pneumonia, unspecified organism (principal); I50.33 Acute on chronic diastolic (congestive) heart failure; J96.22 Acute and chronic respiratory failure with hypercapnia; J96.21 Acute and chronic respiratory failure with hypoxia; J44.0 Chronic obstructive pulmonary disease with (acute) lower respiratory infection; J44.1 Chronic obstructive pulmonary disease with (acute) exacerbation; N17.9 Acute kidney failure, unspecified; I16.1 Hypertensive emergency; E87.2 Acidosis; I13.0 Hypertensive heart and chronic kidney disease with heart failure and stage 1 through stage 4 chronic kidney disease, or unspecified chronic kidney disease; N18.4 Chronic kidney disease, stage 4 (severe); R78.81 Bacteremia; E78.5 Hyperlipidemia, unspecified; M10.9 Gout, unspecified; F17.210 Nicotine dependence, cigarettes, uncomplicated; G47.33 Obstructive sleep apnea (adult) (pediatric); E66.01 Morbid (severe) obesity due to excess calories; I89.0 Lymphedema, not elsewhere classified; I27.20 Pulmonary hypertension, unspecified; D63.1 Anemia in chronic kidney disease; Z20.822 Contact with and (suspected) exposure to COVID-19; E87.5 Hyperkalemia; B99.8 Other infectious disease; E88.09 Other disorders of plasma-protein metabolism, not elsewhere classified; Z91.19 Patient's noncompliance with other medical treatment and regimen; Z79.51 Long term (current) use of inhaled steroids; Z79.82 Long term (current) use of aspirin; Z79.4 Long term (current) use of insulin; Z79.899 Other long term (current) drug therapy; Z68.39 Body mass index [BMI] 39.0-39.9, adult
CPT/HCPCS: 36415; 36416; 36569; 36600; 71045; 71275; 76770; 80053; 80306; 82805; 83605; 83735; 83880; 84145; 84484; 85007; 85025; 85027; 86140; 86769; 87040; 87077; 87149; 87186; 87633; 93005; 93306; 93970; 94640; 94660; 96365; 96367; 96374; 96375; C1751; J0456; J0696; J1644; J1650; J1815; J1940; J2920; J2930; J3475; J3490; J7030; J7050; J7512; J7620; Q9967; U0002; U0003; U0005

== ENCOUNTER 2022-04-02 13:07 | Outpatient (CLI) | payer OTHER | END 2022-04-02 13:08 | disposition home or self-care (01) | PROVIDERS: ATTEND Family Medicine | DX: G95.9 Disease of spinal cord, unspecified (principal); E66.01 Morbid (severe) obesity due to excess calories ==

== ENCOUNTER 2022-12-29 04:27 | Inpatient (IN) | payer OTHER, MEDICAID ==
[2022-12-29] MEDS ORDERED: Fentanyl CADD 100 ML IV SCH ×2 (04:45→07:00)
[2022-12-29 05:02] LABS: #Eosinphils 0.4 thou/uL (0.0-0.7); #Lymphocytes 4.6 thou/uL (1.20-3.40); #Monocytes 1.5 thou/uL (0.11-0.59); #Neutrophils 8.2 thou/uL (1.40-6.50); %Basophils 0.2 % (0.0-1.0); %Eosinophils 2.7 % (0.0-10.0); %Lymphocytes 31.1 % (21.0-51.0); Hemoglobin 9.5 g/dL (14.0-18.0); Mean Corpuscular HGB CONC 31.7 g/dL (32.0-36.0); Mean Corpuscular Hemoglobin 29.3 pg (27.0-31.0); Mean Corpuscular Volume 92.3 fl (78.0-98.0); Mean Platelet Volume 8.9 fL (7.4-10.4); Platelet Count 253 10x3/uL (130-400); RBC Distribution Width 15.5 % (11.5-14.5); Red Blood Cell (RBC) Count 3.24 mill/uL (4.70-6.10); White Blood Cell (WBC) Count 14.6 10x3/uL (4.8-10.8)
[2022-12-29 05:24] LABS: ALT (SGPT) 9 U/L (8-55); AST (SGOT) 13 U/L (5-34); Albumin 3.2 g/dL (3.4-4.8); Alkaline Phosphatase 83 U/L (40-110); Anion Gap 15 mmol/L (10-20); BUN (Urea Nitrogen) 41 mg/dL (8.4-25.7); Bilirubin, Total 0.3 mg/dL (0.2-1.2); Calc. Creatinine Clearance 0 mL/min (70-130); Calcium 7.3 mg/dL (7.8-10.44); Carbon Dioxide 19 mmol/L (23-31); Chloride 110 mmol/L (98-107); Estimated GFR 18; Glucose 145 mg/dL (80-115); Potassium 3.7 mmol/L (3.5-5.1); Protein, Total 7.2 g/dL (5.8-8.1); Sodium 140 mmol/L (136-145)
[2022-12-29 06:13] LABS: Amphetamine Not Detected (NotDetected); Barbiturates Screen Not Detected (NotDetected); Benzodiazepine Screen Not Detected (NotDetected); Cocaine Metabolite Screen Not Detected (NotDetected); Methadone Not Detected (NotDetected); Methamphetamine Not Detected (NotDetected); Opiate Screen Not Detected (NotDetected); Oxycodone Screen Not Detected (NotDetected); Phencyclidine (PCP) Not Detected (NotDetected); THC/Cannabinoid Screen Not Detected (NotDetected); Tricyclic Screen Not Detected (NotDetected)
[2022-12-29 06:14] LABS: Bacteria/HPF None Seen HPF (None Seen); Bilirubin Negative (Negative); Blood, Urine 2+ (Negative); Clarity Turbid (Clear); Glucose, Urine (Dipstick) 100 mg/dL (Negative); Ketone, Urine Negative (Negative); Leukocyte Negative Leu/uL (Negative); Nitrite Negative (Negative); Protein, Urine (Dipstick) 300 mg/dL (Neg-Trace); RBC/HPF 0-3 HPF (0-3); Squamous Epithelial 0-3 HPF (0-3); Urobilinogen Normal mg/dL (Less than 2)
[2022-12-29 06:33] LABS: SARS-CoV-2 NAA Rapid Test Not Detected (NotDetected)
[2022-12-29] MEDS ORDERED: Furosemide 20 MG/2 ML VIAL ONE (06:39)
[2022-12-29] MEDS ORDERED: Cefepime 2 GM VIAL ONE (06:39)
[2022-12-29] MEDS ORDERED: Ondansetron PF 4 MG/2 ML Vial IVP PRN (06:42)
[2022-12-29] MEDS ORDERED: Acetaminophen 325 MG TAB PO PRN (06:42)
[2022-12-29] MEDS ORDERED: Ventilator Sedation Protocol 1 EACH FS SCH (06:45)
[2022-12-29] MEDS ORDERED: DISCONTINUE PREVIOUS NARCOTIC PAIN MEDICATIONS AND BENZODIAZEPINES FS SCH (07:00)
[2022-12-29] MEDS ORDERED: Propofol BOLUS 1,000 MG/100 ML VIAL IV PRN (07:00)
[2022-12-29] MEDS ORDERED: Fentanyl BOLUS 250 ML IVPB PRN (07:00)
[2022-12-29] MEDS ORDERED: Lorazepam 2 MG/ML VIAL SLOW IVP PRN (07:00)
[2022-12-29] MEDS ORDERED: Propofol 1,000 MG/100 ML VIAL IV PRN (07:00)
[2022-12-29] MEDS ORDERED: Morphine 2 MG/ML VIAL SLOW IVP PRN (07:00)
[2022-12-29 07:39] LABS: Actual Bicarbonate (HCO3a) 21.8 mEq/L (22-28); Base Excess (BEa) -3.7 mEq/L (-2.0 to +3.0); CO2 Tension 41.7 mmHg (35.0-45.0); Calcium, Ionized (arterial) 1.01 mmol/L (1.12-1.30); Carboxyhemoglobin (COHb) 0.4 gm% (0.0-3.0); Hemoglobin (Hb) 8.9 g/dL (14.0-18.0); Potassium - ABG Lab 4.01 mmol/L (3.70-5.30); pH, Arterial 7.34 (7.35-7.45)
[2022-12-29 07:42] LABS: Puncture Site RRA
[2022-12-29 07:43] LABS: ALV-art Gradient 550.875 mmHg (0-20)
[2022-12-29 07:45] LABS: Magnesium 1.5 mg/dL (1.6-2.6)
[2022-12-29] MEDS ORDERED: Dextrose 5% in Water 1,000 ML IV PRN (07:56)
[2022-12-29] MEDS ORDERED: HumaLOG 300 UNITS/3 ML VIAL SC PRN (07:56)
[2022-12-29] MEDS ORDERED: Dextrose 50% Abboject 50 ML SYRINGE SLOW IVP PRN (07:56)
[2022-12-29 09:02] VITALS: BMI 37.8
[2022-12-29] MEDS ORDERED: Vancomycin Dose by Levels Sliding Scale (Wt > 99) FS SCH (10:00)
[2022-12-29] MEDS ORDERED: VANCOMYCIN 1.75 GM/500 ML BAG 1.75 GM in Premix Bag 1 BAG IVPB SCH (10:00)
[2022-12-29] MEDS: Famotidine 20 MG TAB PER TUBE SCH (10:17)
[2022-12-29] MEDS: Heparin 5,000 UNITS/ML VIAL SC SCH ×2 (10:17→21:36)
[2022-12-29] MEDS: Ipratropium/Albuterol 3 ML NEB NEB SCH ×4 (10:41→23:14)
[2022-12-29] MEDS ORDERED: Furosemide 20 MG/2 ML VIAL SLOW IVP SCH (14:00)
[2022-12-29] MEDS: metroNIDAZOLE 500 MG in Premix Bag 1 BAG IVPB SCH ×2 (14:30→21:37)
[2022-12-29] MEDS: Furosemide 40 MG/4 ML VIAL SLOW IVP SCH (14:30)
[2022-12-29] MEDS: Cefepime 1 GM in Sodium Chloride 0.9% 100 ML IVPB SCH (18:15)
[2022-12-30] MEDS: Ipratropium/Albuterol 3 ML NEB NEB SCH ×3 (03:02→10:48)
[2022-12-30 03:51] LABS: #Lymphocytes 1.7 thou/uL (1.20-3.40); #Monocytes 1.3 thou/uL (0.11-0.59); #Neutrophils 9.1 thou/uL (1.40-6.50); %Basophils 0.2 % (0.0-1.0); %Eosinophils 0.3 % (0.0-10.0); %Lymphocytes 13.7 % (21.0-51.0); %Monocytes 10.4 % (0.0-10.0); %Neutrophils 75.5 % (42.0-75.0); Hemoglobin 8.8 g/dL (14.0-18.0); Mean Corpuscular HGB CONC 32.7 g/dL (32.0-36.0); Mean Corpuscular Hemoglobin 29.8 pg (27.0-31.0); Mean Corpuscular Volume 91.3 fl (78.0-98.0); Mean Platelet Volume 9.3 fL (7.4-10.4); Platelet Count 206 10x3/uL (130-400); RBC Distribution Width 15.5 % (11.5-14.5); Red Blood Cell (RBC) Count 2.95 mill/uL (4.70-6.10); White Blood Cell (WBC) Count 12.1 10x3/uL (4.8-10.8)
[2022-12-30 04:15] LABS: ALT (SGPT) 9 U/L (8-55); AST (SGOT) 11 U/L (5-34); Albumin 2.6 g/dL (3.4-4.8); Alkaline Phosphatase 71 U/L (40-110); Anion Gap 14 mmol/L (10-20); BUN (Urea Nitrogen) 44 mg/dL (8.4-25.7); Bilirubin, Total 0.3 mg/dL (0.2-1.2); Calc. Creatinine Clearance 33 mL/min (70-130); Calcium 7.7 mg/dL (7.8-10.44); Carbon Dioxide 18 mmol/L (23-31); Chloride 114 mmol/L (98-107); Estimated GFR 16; Globulin 3.8 g/dL (2.4-3.5); Glucose 96 mg/dL (80-115); Magnesium 1.5 mg/dL (1.6-2.6); Potassium 4.3 mmol/L (3.5-5.1); Protein, Total 6.4 g/dL (5.8-8.1); Sodium 142 mmol/L (136-145)
[2022-12-30 04:37] LABS: Hemoglobin A1c 4.2 % (4.0-6.0)
[2022-12-30] MEDS: Cefepime 1 GM in Sodium Chloride 0.9% 100 ML IVPB SCH (06:22)
[2022-12-30] MEDS: metroNIDAZOLE 500 MG in Premix Bag 1 BAG IVPB SCH ×3 (06:40→21:04)
[2022-12-30] MEDS: Furosemide 40 MG/4 ML VIAL SLOW IVP SCH ×2 (07:12→14:31)
[2022-12-30] MEDS ORDERED: Magnesium 2 GM/50 ML(in water) 2 GM in Premix Bag 1 BAG IVPB SCH (08:45)
[2022-12-30 09:00] LABS: Vancomycin, Random 15.2 ug/mL (See Comment)
[2022-12-30] MEDS: Heparin 5,000 UNITS/ML VIAL SC SCH ×2 (09:04→19:36)
[2022-12-30] MEDS: Atorvastatin Calcium 20 MG TAB PO SCH (10:43)
[2022-12-30] MEDS: Famotidine 20 MG TAB PER TUBE SCH (10:43)
[2022-12-30] MEDS: Carvedilol 6.25 MG TAB PO SCH ×2 (10:44→19:34)
[2022-12-30] MEDS: Ipratropium 200 Puff Oral Inhaler INH SCH ×4 (10:50→22:14)
[2022-12-30] MEDS ORDERED: Ipratropium 200 Puff Oral Inhaler INH SCH (11:00)
[2022-12-30] MEDS ORDERED: Albuterol 200 PUFF (6.7GM INHALER) INH SCH (11:00)
[2022-12-30] MEDS ORDERED: NIFEdipine XL 60 MG TAB PO SCH (11:30)
[2022-12-30] MEDS ORDERED: Vancomycin HCl 750 MG in Sodium Chloride 0.9% 250 ML 250 ML IVPB SCH (11:30)
[2022-12-30] MEDS: Albuterol 200 PUFF (6.7GM INHALER) INH SCH ×3 (13:59→22:13)
[2022-12-30 14:17] LABS: Actual Bicarbonate (HCO3a) 19.3 mEq/L (22-28); Base Excess (BEa) -7.6 mEq/L (-2.0 to +3.0); CO2 Tension 45.4 mmHg (35.0-45.0); Calcium, Ionized (arterial) 1.11 mmol/L (1.12-1.30); Carboxyhemoglobin (COHb) 0.5 gm% (0.0-3.0); Hemoglobin (Hb) 9.4 g/dL (14.0-18.0); O2 Tension (PaO2), arterial 69.1 mmHg (> 80.0); Potassium - ABG Lab 3.95 mmol/L (3.70-5.30); pH, Arterial 7.25 (7.35-7.45)
[2022-12-30 14:58] LABS: Puncture Site RRA
[2022-12-30] MEDS ORDERED: Docusate 100 MG CAP PO PRN (15:58)
[2022-12-30] MEDS ORDERED: Polyethylene Glycol 3350 17 GM Packet PO PRN (15:58)
[2022-12-30] MEDS: HYDROcodone/Acetaminophen 10/325 mg Tablet PO PRN (16:58)
[2022-12-31] MEDS: Albuterol 200 PUFF (6.7GM INHALER) INH SCH ×3 (01:41→10:21)
[2022-12-31] MEDS: Ipratropium 200 Puff Oral Inhaler INH SCH ×3 (01:41→10:21)
[2022-12-31 05:18] LABS: #Eosinphils 0.2 thou/uL (0.0-0.7); #Monocytes 1.2 thou/uL (0.11-0.59); #Neutrophils 7.2 thou/uL (1.40-6.50); %Basophils 0.4 % (0.0-1.0); %Eosinophils 1.6 % (0.0-10.0); %Lymphocytes 18.8 % (21.0-51.0); %Monocytes 11.2 % (0.0-10.0); Hemoglobin 8.2 g/dL (14.0-18.0); Mean Corpuscular Hemoglobin 28.8 pg (27.0-31.0); Mean Corpuscular Volume 92.8 fl (78.0-98.0); Platelet Count 200 10x3/uL (130-400); RBC Distribution Width 15.6 % (11.5-14.5); Red Blood Cell (RBC) Count 2.84 mill/uL (4.70-6.10); White Blood Cell (WBC) Count 10.5 10x3/uL (4.8-10.8)
[2022-12-31 05:41] LABS: ALT (SGPT) 7 U/L (8-55); AST (SGOT) 10 U/L (5-34); Albumin 2.8 g/dL (3.4-4.8); Alkaline Phosphatase 66 U/L (40-110); Anion Gap 9 mmol/L (10-20); BUN (Urea Nitrogen) 50 mg/dL (8.4-25.7); Bilirubin, Total 0.2 mg/dL (0.2-1.2); Calc. Creatinine Clearance 31 mL/min (70-130); Calcium 7.4 mg/dL (7.8-10.44); Carbon Dioxide 21 mmol/L (23-31); Chloride 112 mmol/L (98-107); Estimated GFR 15; Globulin 3.5 g/dL (2.4-3.5); Glucose 95 mg/dL (80-115); Magnesium 1.8 mg/dL (1.6-2.6); Potassium 4.2 mmol/L (3.5-5.1); Protein, Total 6.3 g/dL (5.8-8.1); Sodium 138 mmol/L (136-145)
[2022-12-31] MEDS: metroNIDAZOLE 500 MG in Premix Bag 1 BAG IVPB SCH ×3 (05:46→21:32)
[2022-12-31] MEDS: Cefepime 1 GM in Sodium Chloride 0.9% 100 ML IVPB SCH (05:46)
[2022-12-31] MEDS: Furosemide 40 MG/4 ML VIAL SLOW IVP SCH ×2 (05:47→13:38)
[2022-12-31] MEDS: Carvedilol 6.25 MG TAB PO SCH ×2 (08:00→21:49)
[2022-12-31] MEDS: HYDROcodone/Acetaminophen 10/325 mg Tablet PO PRN ×2 (08:00→17:25)
[2022-12-31] MEDS: Atorvastatin Calcium 20 MG TAB PO SCH (08:01)
[2022-12-31] MEDS: Famotidine 20 MG TAB PER TUBE SCH (08:01)
[2022-12-31] MEDS: NIFEdipine XL 60 MG TAB PO SCH (08:02)
[2022-12-31] MEDS: Heparin 5,000 UNITS/ML VIAL SC SCH ×2 (08:02→21:31)
[2022-12-31] MEDS ORDERED: Ipratropium 200 Puff Oral Inhaler INH PRN (10:29)
[2022-12-31] MEDS ORDERED: Albuterol 200 PUFF (6.7GM INHALER) INH PRN (10:30)
[2022-12-31] MEDS ORDERED: predniSONE 20 MG TAB PO SCH (12:30)
[2023-01-01] MEDS: metroNIDAZOLE 500 MG in Premix Bag 1 BAG IVPB SCH ×3 (05:01→21:51)
[2023-01-01] MEDS: Cefepime 1 GM in Sodium Chloride 0.9% 100 ML IVPB SCH (05:01)
[2023-01-01 05:16] LABS: Hemoglobin 7.5 g/dL (14.0-18.0); Mean Corpuscular HGB CONC 31.7 g/dL (32.0-36.0); Mean Corpuscular Hemoglobin 29.3 pg (27.0-31.0); Mean Corpuscular Volume 92.4 fl (78.0-98.0); Mean Platelet Volume 9.6 fL (7.4-10.4); Platelet Count 194 10x3/uL (130-400); RBC Distribution Width 15.5 % (11.5-14.5); Red Blood Cell (RBC) Count 2.57 mill/uL (4.70-6.10); White Blood Cell (WBC) Count 11.1 10x3/uL (4.8-10.8)
[2023-01-01 05:37] LABS: Anion Gap 12 mmol/L (10-20); BUN (Urea Nitrogen) 54 mg/dL (8.4-25.7); Calc. Creatinine Clearance 30 mL/min (70-130); Calcium 7.6 mg/dL (7.8-10.44); Carbon Dioxide 19 mmol/L (23-31); Chloride 113 mmol/L (98-107); Estimated GFR 14; Glucose 108 mg/dL (80-115); Potassium 4.2 mmol/L (3.5-5.1); Sodium 140 mmol/L (136-145)
[2023-01-01] MEDS: Heparin 5,000 UNITS/ML VIAL SC SCH ×2 (08:10→21:46)
[2023-01-01] MEDS: HYDROcodone/Acetaminophen 10/325 mg Tablet PO PRN (08:10)
[2023-01-01] MEDS: Furosemide 80 MG TAB PO SCH (08:11)
[2023-01-01] MEDS: predniSONE 20 MG TAB PO SCH (08:11)
[2023-01-01] MEDS: NIFEdipine XL 60 MG TAB PO SCH (08:11)
[2023-01-01] MEDS: Atorvastatin Calcium 20 MG TAB PO SCH (08:11)
[2023-01-01] MEDS: Famotidine 20 MG TAB PER TUBE SCH (08:11)
[2023-01-01] MEDS: Carvedilol 6.25 MG TAB PO SCH ×2 (08:11→21:47)
[2023-01-01] MEDS ORDERED: Cefepime 1 GM in Sodium Chloride 0.9% 100 ML IVPB SCH (09:15)
[2023-01-02 04:57] LABS: Hemoglobin 7.9 g/dL (14.0-18.0); Mean Corpuscular HGB CONC 30.6 g/dL (32.0-36.0); Mean Corpuscular Hemoglobin 28.4 pg (27.0-31.0); Mean Platelet Volume 9.7 fL (7.4-10.4); Platelet Count 217 10x3/uL (130-400); RBC Distribution Width 15.2 % (11.5-14.5); Red Blood Cell (RBC) Count 2.78 mill/uL (4.70-6.10); White Blood Cell (WBC) Count 11.7 10x3/uL (4.8-10.8)
[2023-01-02 05:25] LABS: Anion Gap 15 mmol/L (10-20); BUN (Urea Nitrogen) 59 mg/dL (8.4-25.7); Calc. Creatinine Clearance 29 mL/min (70-130); Calcium 7.6 mg/dL (7.8-10.44); Carbon Dioxide 19 mmol/L (23-31); Chloride 112 mmol/L (98-107); Estimated GFR 14; Glucose 131 mg/dL (80-115); Potassium 3.5 mmol/L (3.5-5.1); Sodium 142 mmol/L (136-145)
[2023-01-02] MEDS: metroNIDAZOLE 500 MG in Premix Bag 1 BAG IVPB SCH ×3 (05:43→23:02)
[2023-01-02] MEDS: Cefepime 1 GM in Sodium Chloride 0.9% 100 ML IVPB SCH (05:43)
[2023-01-02] MEDS: Famotidine 20 MG TAB PER TUBE SCH (08:54)
[2023-01-02] MEDS: Furosemide 80 MG TAB PO SCH (08:54)
[2023-01-02] MEDS: Carvedilol 6.25 MG TAB PO SCH ×2 (08:54→20:57)
[2023-01-02] MEDS: NIFEdipine XL 60 MG TAB PO SCH (08:54)
[2023-01-02] MEDS: Atorvastatin Calcium 20 MG TAB PO SCH (08:54)
[2023-01-02] MEDS: predniSONE 20 MG TAB PO SCH (08:55)
[2023-01-02] MEDS: Heparin 5,000 UNITS/ML VIAL SC SCH ×2 (09:41→20:57)
[2023-01-03] MEDS: metroNIDAZOLE 500 MG in Premix Bag 1 BAG IVPB SCH ×2 (05:37→13:11)
[2023-01-03] MEDS: Cefepime 1 GM in Sodium Chloride 0.9% 100 ML IVPB SCH (05:37)
[2023-01-03] MEDS: predniSONE 20 MG TAB PO SCH (08:04)
[2023-01-03] MEDS: NIFEdipine XL 60 MG TAB PO SCH (08:04)
[2023-01-03] MEDS: Carvedilol 6.25 MG TAB PO SCH ×2 (08:04→21:47)
[2023-01-03] MEDS: Atorvastatin Calcium 20 MG TAB PO SCH (08:04)
[2023-01-03] MEDS: Furosemide 80 MG TAB PO SCH (08:04)
[2023-01-03] MEDS: Famotidine 20 MG TAB PER TUBE SCH (08:04)
[2023-01-03] MEDS: Heparin 5,000 UNITS/ML VIAL SC SCH ×2 (08:05→21:48)
[2023-01-03 08:17] LABS: #Eosinphils 0.1 thou/uL (0.0-0.7); #Lymphocytes 2.6 thou/uL (1.20-3.40); #Monocytes 1.4 thou/uL (0.11-0.59); #Neutrophils 8.2 thou/uL (1.40-6.50); %Basophils 0.3 % (0.0-1.0); %Eosinophils 0.7 % (0.0-10.0); %Lymphocytes 20.8 % (21.0-51.0); %Monocytes 11.1 % (0.0-10.0); %Neutrophils 67.1 % (42.0-75.0); Hemoglobin 8.5 g/dL (14.0-18.0); Mean Corpuscular HGB CONC 31.2 g/dL (32.0-36.0); Mean Corpuscular Hemoglobin 29.1 pg (27.0-31.0); Mean Corpuscular Volume 93.3 fl (78.0-98.0); Mean Platelet Volume 9.1 fL (7.4-10.4); Platelet Count 224 10x3/uL (130-400); RBC Distribution Width 15.2 % (11.5-14.5); Red Blood Cell (RBC) Count 2.92 mill/uL (4.70-6.10); White Blood Cell (WBC) Count 12.3 10x3/uL (4.8-10.8)
[2023-01-03 08:42] LABS: ALT (SGPT) 7 U/L (8-55); AST (SGOT) 7 U/L (5-34); Albumin 2.8 g/dL (3.4-4.8); Alkaline Phosphatase 58 U/L (40-110); Anion Gap 13 mmol/L (10-20); BUN (Urea Nitrogen) 63 mg/dL (8.4-25.7); Bilirubin, Total 0.2 mg/dL (0.2-1.2); Calc. Creatinine Clearance 31 mL/min (70-130); Calcium 7.9 mg/dL (7.8-10.44); Carbon Dioxide 20 mmol/L (23-31); Chloride 112 mmol/L (98-107); Estimated GFR 14; Globulin 3.7 g/dL (2.4-3.5); Glucose 94 mg/dL (80-115); Potassium 3.7 mmol/L (3.5-5.1); Protein, Total 6.5 g/dL (5.8-8.1); Sodium 141 mmol/L (136-145)
[2023-01-03] MEDS ORDERED: Diphenoxylate HCl/Atropine Tablet PO PRN (14:20)
[2023-01-03] MEDS: Cefuroxime 250 MG TAB PO SCH (21:48)
[2023-01-04 05:49] LABS: Anion Gap 12 mmol/L (10-20); BUN (Urea Nitrogen) 69 mg/dL (8.4-25.7); Calc. Creatinine Clearance 31 mL/min (70-130); Calcium 7.6 mg/dL (7.8-10.44); Carbon Dioxide 21 mmol/L (23-31); Chloride 111 mmol/L (98-107); Estimated GFR 14; Glucose 112 mg/dL (80-115); Magnesium 1.9 mg/dL (1.6-2.6); Potassium 3.9 mmol/L (3.5-5.1); Sodium 140 mmol/L (136-145)
[2023-01-04] MEDS: predniSONE 20 MG TAB PO SCH (09:07)
[2023-01-04] MEDS: Cefuroxime 250 MG TAB PO SCH ×2 (09:07→21:35)
[2023-01-04] MEDS: Heparin 5,000 UNITS/ML VIAL SC SCH ×2 (09:08→21:35)
[2023-01-04] MEDS: Famotidine 20 MG TAB PER TUBE SCH (09:08)
[2023-01-04] MEDS: Atorvastatin Calcium 20 MG TAB PO SCH (09:08)
[2023-01-04] MEDS: Carvedilol 6.25 MG TAB PO SCH ×2 (09:08→21:34)
[2023-01-04] MEDS: NIFEdipine XL 60 MG TAB PO SCH (09:08)
[2023-01-04] MEDS: Torsemide 100 MG TAB PO SCH (10:27)
[2023-01-04] MEDS: HYDROcodone/Acetaminophen 10/325 mg Tablet PO PRN (21:43)
[2023-01-05 07:51] LABS: Albumin 2.7 g/dL (3.4-4.8); Anion Gap 13 mmol/L (10-20); BUN (Urea Nitrogen) 75 mg/dL (8.4-25.7); BUN/Creatinine Ratio 16.48; Calc. Creatinine Clearance 28 mL/min (70-130); Calcium 7.4 mg/dL (7.8-10.44); Carbon Dioxide 21 mmol/L (23-31); Chloride 108 mmol/L (98-107); Estimated GFR 14; Glucose 123 mg/dL (80-115); Potassium 3.6 mmol/L (3.5-5.1); Sodium 138 mmol/L (136-145)
[2023-01-05] MEDS: Carvedilol 6.25 MG TAB PO SCH ×2 (08:08→20:54)
[2023-01-05] MEDS: Cefuroxime 250 MG TAB PO SCH ×2 (08:08→20:55)
[2023-01-05] MEDS: NIFEdipine XL 60 MG TAB PO SCH (08:08)
[2023-01-05] MEDS: Atorvastatin Calcium 20 MG TAB PO SCH (08:08)
[2023-01-05] MEDS: Famotidine 20 MG TAB PER TUBE SCH (08:08)
[2023-01-05] MEDS: Heparin 5,000 UNITS/ML VIAL SC SCH ×2 (08:08→20:56)
[2023-01-05] MEDS: Torsemide 100 MG TAB PO SCH (09:56)
[2023-01-05] MEDS: HYDROcodone/Acetaminophen 10/325 mg Tablet PO PRN (20:54)
[2023-01-06 07:29] LABS: Albumin 2.8 g/dL (3.4-4.8); Anion Gap 14 mmol/L (10-20); BUN (Urea Nitrogen) 84 mg/dL (8.4-25.7); BUN/Creatinine Ratio 19.58; Calc. Creatinine Clearance 30 mL/min (70-130); Calcium 7.4 mg/dL (7.8-10.44); Carbon Dioxide 23 mmol/L (23-31); Chloride 109 mmol/L (98-107); Estimated GFR 15; Glucose 96 mg/dL (80-115); Phosphorus 5.6 mg/dL (2.3-4.7); Potassium 3.9 mmol/L (3.5-5.1); Sodium 142 mmol/L (136-145)
[2023-01-06] MEDS: Atorvastatin Calcium 20 MG TAB PO SCH (09:51)
[2023-01-06] MEDS: NIFEdipine XL 60 MG TAB PO SCH (09:51)
[2023-01-06] MEDS: Heparin 5,000 UNITS/ML VIAL SC SCH ×2 (09:52→20:58)
[2023-01-06] MEDS: Famotidine 20 MG TAB PER TUBE SCH (09:52)
[2023-01-06] MEDS: Cefuroxime 250 MG TAB PO SCH ×2 (09:52→20:57)
[2023-01-06] MEDS: Carvedilol 6.25 MG TAB PO SCH ×2 (09:52→20:57)
[2023-01-06] MEDS: Torsemide 100 MG TAB PO SCH (10:39)
[2023-01-06] MEDS: HYDROcodone/Acetaminophen 10/325 mg Tablet PO PRN (20:57)
[2023-01-07 04:52] LABS: #Eosinphils 0.3 thou/uL (0.0-0.7); #Lymphocytes 2.2 thou/uL (1.20-3.40); #Monocytes 1.5 thou/uL (0.11-0.59); #Neutrophils 7.5 thou/uL (1.40-6.50); %Basophils 0.4 % (0.0-1.0); %Eosinophils 2.5 % (0.0-10.0); %Lymphocytes 18.8 % (21.0-51.0); %Monocytes 13.1 % (0.0-10.0); %Neutrophils 65.1 % (42.0-75.0); Hemoglobin 8.7 g/dL (14.0-18.0); Mean Corpuscular HGB CONC 32.8 g/dL (32.0-36.0); Mean Corpuscular Hemoglobin 30.1 pg (27.0-31.0); Mean Corpuscular Volume 91.7 fl (78.0-98.0); Mean Platelet Volume 9.8 fL (7.4-10.4); Platelet Count 220 10x3/uL (130-400); RBC Distribution Width 15.7 % (11.5-14.5); Red Blood Cell (RBC) Count 2.88 mill/uL (4.70-6.10); White Blood Cell (WBC) Count 11.6 10x3/uL (4.8-10.8)
[2023-01-07 05:11] LABS: Albumin 2.9 g/dL (3.4-4.8); Anion Gap 13 mmol/L (10-20); BUN (Urea Nitrogen) 83 mg/dL (8.4-25.7); Calc. Creatinine Clearance 32 mL/min (70-130); Calcium 7.3 mg/dL (7.8-10.44); Carbon Dioxide 28 mmol/L (23-31); Chloride 104 mmol/L (98-107); Estimated GFR 16; Glucose 94 mg/dL (80-115); Phosphorus 4.6 mg/dL (2.3-4.7); Potassium 3.7 mmol/L (3.5-5.1); Sodium 141 mmol/L (136-145)
[2023-01-07] MEDS: HYDROcodone/Acetaminophen 10/325 mg Tablet PO PRN (06:21)
[2023-01-07 07:55] VITALS: BP 144/76; TEMP 98.9
[2023-01-07] MEDS: Carvedilol 6.25 MG TAB PO SCH (08:37)
[2023-01-07] MEDS: Famotidine 20 MG TAB PER TUBE SCH (08:38)
[2023-01-07] MEDS: Atorvastatin Calcium 20 MG TAB PO SCH (08:38)
[2023-01-07] MEDS: Cefuroxime 250 MG TAB PO SCH (08:38)
[2023-01-07] MEDS: NIFEdipine XL 60 MG TAB PO SCH (08:38)
[2023-01-07] MEDS: Heparin 5,000 UNITS/ML VIAL SC SCH (08:38)
[2023-01-07] MEDS: Torsemide 100 MG TAB PO SCH (10:01)
== END 2023-01-07 11:01 | disposition home or self-care (01) | DRG 291 ==
LOC: ERS 04:27 → CCU 06:32 → 2NO 12-31 17:15
PROVIDERS: ADMIT Internal Medicine; ATTEND Internal Medicine
PROC: 5A1945Z Respiratory Ventilation, 24-96 Consecutive Hours (ICD-10-PCS; principal; 2022-12-29)
PROC: 0D9670Z Drainage of Stomach with Drainage Device, Via Natural or Artificial Opening (ICD-10-PCS; 2022-12-29)
PROC: 5A09357 Assistance with Respiratory Ventilation, Less than 24 Consecutive Hours, Continuous Positive Airway Pressure (ICD-10-PCS; 2022-12-30)
DX: I13.0 Hypertensive heart and chronic kidney disease with heart failure and stage 1 through stage 4 chronic kidney disease, or unspecified chronic kidney disease (principal); I50.33 Acute on chronic diastolic (congestive) heart failure; J96.22 Acute and chronic respiratory failure with hypercapnia; J96.21 Acute and chronic respiratory failure with hypoxia; N17.9 Acute kidney failure, unspecified; N18.4 Chronic kidney disease, stage 4 (severe); L97.809 Non-pressure chronic ulcer of other part of unspecified lower leg with unspecified severity; Z20.822 Contact with and (suspected) exposure to COVID-19; E11.22 Type 2 diabetes mellitus with diabetic chronic kidney disease; E78.5 Hyperlipidemia, unspecified; G47.33 Obstructive sleep apnea (adult) (pediatric); D63.1 Anemia in chronic kidney disease; J44.9 Chronic obstructive pulmonary disease, unspecified; E66.01 Morbid (severe) obesity due to excess calories; E83.42 Hypomagnesemia; Z91.148 Patient's other noncompliance with medication regimen for other reason; Z78.1 Physical restraint status; Z99.81 Dependence on supplemental oxygen; Z79.899 Other long term (current) drug therapy; Z79.82 Long term (current) use of aspirin; Z79.4 Long term (current) use of insulin; Z79.52 Long term (current) use of systemic steroids; Z87.891 Personal history of nicotine dependence; Z91.199 Patient's noncompliance with other medical treatment and regimen due to unspecified reason; Z74.01 Bed confinement status
CPT/HCPCS: 36415; 36416; 36600; 71045; 80048; 80053; 80069; 80202; 80306; 81003; 81015; 82805; 83036; 83605; 83735; 83880; 84145; 84484; 85025; 85027; 87040; 87081; 87324; 87449; 93005; 93306; 94002; 94003; 94640; J0692; J1644; J1815; J1940; J2060; J3010; J3370; J3475; J3490; J7050; J7512; J7620; U0002